=== PATIENT | male | born 1980 | race Two or more races ===

== ENCOUNTER 2023-01-10 09:32 | Day surgery (SDC) | payer BC ==
[2023-01-05 11:18] LABS: Basophils # (auto) 0.1 10 ^3/uL (0-0.2); Basophils % (auto) 0.7 % (0.0-2.0); Eosinophils # (auto) 0.2 10 ^3/uL (0-0.8); Eosinophils % (auto) 2.1 % (0.0-7.0); Lymphocytes # (auto) 4.7 10 ^3/uL (0.4-5.4); Lymphocytes % (auto) 47.3 % (10.0-50.0); Mean Corpuscular Hemoglobin 30.9 pg (28.0-32.0); Mean Corpuscular Volume 90.7 fL (80.0-100.0); Monocytes # (auto) 0.6 10 ^3/uL (0-1.3); Monocytes % (auto) 6.6 % (0.0-12.0); Neutrophils # (auto) 4.3 10 ^3/uL (1.6-8.6); Neutrophils % (auto) 43.3 % (37.0-80.0); Nucleated Red Blood Cells % 0.1 %; Red Blood Cells 4.85 10^6/uL (4.5-5.90); Red Cell Distribution Width 13.4 % (11.8-14.3); White Blood Cell 9.8 10^3/uL (4.4-10.8)
[2023-01-05 11:32] LABS: INR 0.97 (0.9-1.15); Partial Thromboplastin Time 25.7 sec (24.6-33.4)
[2023-01-05 11:52] LABS: Urine Bacteria NONE SEEN /hpf (None Seen); Urine Blood Negative /uL (Negative); Urine Mucus FEW (None Seen); Urine Specific Gravity 1.019 (1.001-1.035); Urine WBC <1 /hpf (0 - 3)
[2023-01-05 12:26] LABS: Calcium 8.8 mg/dL (8.5-10.1); Potassium 4.9 mmol/L (3.5-5.1)
[2023-01-05 12:29] LABS: Bilirubin, Total 0.5 mg/dL (0.2-1.0); Total Protein 7.9 g/dL (6.4-8.2)
[~2023-01-10] VITALS: Ht 170.2 cm; Wt 104.3 kg
[2023-01-10] MEDS ORDERED: ceFAZolin 1GM/50ML 100 ML IV ONE (09:49)
[2023-01-10] MEDS ORDERED: DexAMETHasone SOD PHOS 10MG/1ML VIAL INJ ONE (12:19)
[2023-01-10] MEDS ORDERED: SODIUM CHLORIDE LOCK 10 ML ONE (12:19)
[2023-01-10] MEDS ORDERED: PROPOFOL 10 MG/ML 20 ML IV ONE (12:19)
[2023-01-10] MEDS ORDERED: MIDAZOLAM HCL 2MG/2ML 2ml VIAL (1mg/ml) ONE (12:19)
[2023-01-10] MEDS ORDERED: fentaNYL CITRATE 100 MCG/2 ML VL ONE (12:19)
[2023-01-10] MEDS ORDERED: MEPERIDINE HCL (50 MG/ML) 1 ML VIAL ONE (12:19)
[2023-01-10] MEDS ORDERED: ONDANSETRON HCL 4 MG/2 ML VIAL ONE (12:19)
[2023-01-10] MEDS ORDERED: MORPHINE SULFATE INJ 2 MG/ml SYRG IV PRN (12:30)
[2023-01-10] MEDS ORDERED: METOCLOPRAMIDE HCL 5MG/ml INJ 2ml VIAL IV PRN (12:30)
[2023-01-10] MEDS ORDERED: ACCU-CHEK COMFORT CURVE STRIP VI ONE (12:30)
[2023-01-10] MEDS ORDERED: HYDROmorphone HCL 2 MG/ML VL/or syr IV PRN ×2 (12:30)
[2023-01-10] MEDS ORDERED: BUPIVACAINE HCL 50 ML ONE (13:25)
[2023-01-10] MEDS ORDERED: KETOROLAC TROMETH 30 MG/ML 1ML VIAL IV ONE ×2 (15:45→15:46)
[2023-01-10 16:02] VITALS: BP 124/73
== END 2023-01-10 16:10 | disposition home or self-care (01) ==
LOC: SUR 09:32
PROVIDERS: ATTEND Orthopaedic Surgery Sports Medicine
DX: S83.241A Other tear of medial meniscus, current injury, right knee, initial encounter (principal); X58.XXXA Exposure to other specified factors, initial encounter; M22.41 Chondromalacia patellae, right knee; E11.9 Type 2 diabetes mellitus without complications; Y93.89 Activity, other specified; Y92.89 Other specified places as the place of occurrence of the external cause; Y99.8 Other external cause status; Z98.890 Other specified postprocedural states
CPT/HCPCS: 29882; 36415; 80053; 81001; 82962; 85025; 85610; 85730; J0690; J1100; J1885; J2175; J2250; J2405; J2704; J3010; J3490

== ENCOUNTER 2025-01-12 23:53 | Emergency (ER) | payer OTHER ==
[~2025-01-12] VITALS: Ht 177.8 cm; Wt 115.9 kg
[2025-01-13 01:00] VITALS: BP 131/70; PULSE 86; RESP 17; TEMP 98.3; O2SAT 96
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
[2025-01-13] MEDS: KETOROLAC TROMETH 60MG/2ML VIAL IM ONE (01:46)
[2025-01-13] MEDS: OXYCODONE W/ ACETAMINOPHEN 5/325MG TABLET PO ONE (01:46)
[2025-01-13] MEDS ORDERED: IBUP-1456 PO (02:01)
[2025-01-13] MEDS ORDERED: TIZA-142 PO (02:01)
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
--- NOTE | 2025-01-13 12:25 | ECG ---
[facility] Test Date: 2025-01-13 Test Time: 00:14:32 Pat Name: ROSEMARIE GARCIA Department: ED Room: Gender: M Glass Cleaner: : 1980 Requested By: SAM OLIVARES Order Number: [id number] Reading MD: Lawrence Hammonds Measurements Intervals [place] Rate: 87 P: 26 MN: 160 QRS: 72 QRSD: 113 T: 4 QT: 374 QTc: 450 Interpretive Statements Sinus rhythm Borderline intraventricular conduction delay Abnormal inferior Q waves Electronically Signed On 01-15-2025 20:56:38 PDT by Lawrence Hammonds Please click the below link to view image of tracing.
== END 2025-01-13 02:45 | disposition home or self-care (01) ==
LOC: EDBD 23:53 → ER 23:53
DX: S13.4XXA Sprain of ligaments of cervical spine, initial encounter (principal); S20.219A Contusion of unspecified front wall of thorax, initial encounter; S80.01XA Contusion of right knee, initial encounter; S80.02XA Contusion of left knee, initial encounter; S80.11XA Contusion of right lower leg, initial encounter; Z79.899 Other long term (current) drug therapy; V89.2XXA Person injured in unspecified motor-vehicle accident, traffic, initial encounter; Y93.89 Activity, other specified; Y92.410 Unspecified street and highway as the place of occurrence of the external cause; Y99.8 Other external cause status
CPT/HCPCS: 71046; 72040; 73030; 73562; 93005; 96372; 99284; J1885